=== PATIENT | male | born 1960 | race Caucasian/White ===

== ENCOUNTER 2016-05-08 11:00 | Emergency (ER) | payer BC, MEDICAID ==
[~2016-05-08] VITALS: Wt 78.0 kg
[~2016-05-08 11:00] MED LIST: ALBU8.5H3 IH; ALBU8.5H3 INH; AZIT500T3 PO; OSLT75C PO; PRED20TA PO
[2016-05-08] MEDS ORDERED: IPRATROPIUM (NEB) 0.5 MG/2.5 ML AMP NEB STA (12:10)
[2016-05-08] MEDS ORDERED: predniSONE 20 MG TAB PO STA (12:10)
[2016-05-08] MEDS ORDERED: ALBUTEROL 0.5% (NEB) 2.5 MG/0.5 ML AMP NEB STA (12:10)
--- NOTE | 2016-05-08 12:46 | ERD ---
ER Documentation Chief Complaint Date/Time DATE: 05/08/16 TIME: 12:45 Chief Complaint FLU SYMPTOMS X 1 WEEK HPI This is a 55-year-old male who presents to the emergency room for evaluation of nasal congestion, dry cough and wheezing for the past 1 week. The patient does state he has a history of asthma. He does state that he sometimes uses an inhaler with mild relief. The patient was seen in the emergency room last week for similar complaints. The patient states that he is feeling better when he left the emergency room has similar symptoms. ROS All systems reviewed and are negative except as per history of present illness. Medications Home Meds Active Scripts Prednisone* (Prednisone*) 20 Mg Tab, 20 MG PO BID, #8 TAB Prov:SUREKHA DAVIDSON MD 05/02/15 Albuterol Sulfate* (Proair HFA*) 8.5 Gm Hfa.aer.ad, 2 PUFF INH Q6H Y for WHEEZING AND SOB, #1 INHALER Prov:SUREKHA DAVIDSON MD 05/02/15 Azithromycin* (Zithromax*) 500 Mg Tablet, 500 MG PO DAILY for 4 Days, TAB Prov:SUREKHA DAVDISON MD 05/02/15 Oseltamivir Phosphate* (Tamiflu*) 75 Mg Capsule, 75 MG PO BID, #9 CAP Prov:SUREKHA DAVIDSON MD 05/02/15 Reported Medications Albuterol Sulfate* (Proair HFA*) 8.5 Gm Hfa.aer.ad, 2 PUFFS IH PRN 04/13/13 Allergies Allergies: Coded Allergies: No Known Drug Allergies (Verified Allergy, Mild, 05/08/16) PMhx/Soc History of Surgery: Yes (APPY) Anesthesia Reaction: No Hx Neurological Disorder: No Hx Respiratory Disorders: Yes (ASTHMA) Hx Cardiac Disorders: No Hx Psychiatric Problems: No Hx Miscellaneous Medical Probl: No Hx Alcohol Use: No Hx Substance Use: No Hx Tobacco Use: No Smoking Status: Never smoker Physical Exam Vitals Vital Signs Date Time Temp Pulse Resp B/P Pulse Ox O2 Delivery O2 Flow Rate FiO2 05/08/16 12:23 90 20 95 21 05/08/16 11:09 98.0 78 18 151/71 98 Physical Exam INITIAL VITAL SIGNS: Reviewed by me GENERAL: The patient is well developed and appropriate for usual state of health in no apparent distress HEENT: Bilateral nasal congestion pupils equal, round, and reactive to light. EOMI. There is no scleral icterus. NECK: C-spine is soft and supple, there is no meningismus. There is no cervical lymphadenopathy. LUNGS: Wheezing auscultated in the bilateral lobes, no rales or rhonchi HEART: Regular rate and rhythm, no murmurs, clicks, rubs or gallops. ABDOMEN: Soft, non-tender, non-distended. There are bowel sounds in all four quadrants. No rebound or guarding. EXTREMITIES: There is no peripheral cyanosis or edema. No focal swelling or erythema. NEUROLOGICAL: The patient moves all four extremities with 5/5 strength. Cranial nerves II - XII are intact. Normal gait. Alert and oriented SKIN: There is no apparent rash or petechiae. HEME/LYMPHATIC: There is no evidence of excessive bruising or lymphedema. PSYCHIATRIC: The patient does not appear anxious or depressed. Results 24 hrs Current Medications Medications (Trade) Dose Ordered Sig/Jose Ramon Route PRN Reason Start Time Stop Time Status Last Admin Dose Admin Albuterol (Proventil 0.5% (Neb)) 10 mg ONCE STAT NEB 05/08/16 12:10 05/08/16 12:11 DC 05/08/16 12:22 Ipratropium [place] (Atrovent 0.02% (Neb)) 1.5 mg ONCE STAT NEB 05/08/16 12:10 05/08/16 12:11 DC 05/08/16 12:22 Prednisone (Prednisone) 60 mg ONCE STAT PO 05/08/16 12:10 05/08/16 12:11 DC 05/08/16 12:41 Procedures/MDM This 55-year-old male presents to the ER for evaluation of flulike symptoms for the past week. The patient was seen in the emergency room last week and was discharged home with an inhaler according to the patient. When I evaluated him today he did have bilateral wheezing. He was not hypoxic or tachycardic and did not appear to be in severe respiratory distress. The patient was given a breathing treatment with albuterol, Atrovent, and p.o. prednisone. When I reevaluated him he states he is feeling better at this time. The patient will be discharged home at this time with a prescription for ProAir air, and prednisone. Departure Diagnosis: Primary Impression: Asthmatic bronchitis Condition: Stable FANNY HOGAN DO May 08, 2016 12:46
[2016-05-08] MEDS ORDERED: ALBU8.5H3 INH (12:47)
[2016-05-08] MEDS ORDERED: PRED50TA PO (12:47)
[2016-05-08 13:03] VITALS: BP 163/82; PULSE 102; RESP 18; TEMP 96.9
== END 2016-05-08 13:03 | disposition home or self-care (01) ==
LOC: FTE 11:00
DX: J45.901 Unspecified asthma with (acute) exacerbation (principal)
CPT/HCPCS: 94644; 99284; J7512; Z7610

== ENCOUNTER 2017-04-21 23:16 | Emergency (ER) | END 2017-04-22 03:06 | disposition home or self-care (01) ==